=== PATIENT | female | born 1960 | race Caucasian/White ===

== ENCOUNTER 2023-05-03 08:11 | Outpatient (CLI) | payer OTHER, SELFPAY ==
[2023-05-03 19:21] LABS: Hematocrit 42.3 % (37.0-47.0); Hemoglobin 13.7 g/dL (12.0-15.0); Mean Corpuscular HGB Conc 32.4 g/dl (32-36); Mean Corpuscular Hemoglobin 31.4 pg (26-34); Mean Platelet Volume 10.3 fl (7.4-10.4); Platelet Count Result 331 k/mm3 (150-375); Red Blood Count 4.36 M/mm3 (4.2-5.4); Red Cell Distribution Width 13.1 % (11.5-14.5); White Blood Count 5.5 K/mm3 (4.5-10.0)
[2023-05-03 21:44] LABS: Alanine Aminotransferase 14 U/L (6-35); Albumin Level 3.9 g/dL (3.5-5.1); Alkaline Phosphatase 69 U/L (38-126); Anion Gap 7 mmol/L (8-16); Aspartate Amino Transferase 33 U/L (14-36); Bilirubin,Total 0.6 mg/dL (0.2-1.3); Blood Urea Nitrogen 15 mg/dL (7-17); Calcium 8.8 mg/dL (8.4-10.2); Carbon Dioxide 27 mmol/L (22-30); Chloride 103 mmol/L (98-107); Cholesterol 220 mg/dL (0-200); Estimated Glomerular Filt Rate > 60; Glucose 72 mg/dL (65-110); HDL Direct 55 mg/dL; Potassium 4.2 mmol/L (3.4-5.0); Sodium 137 mmol/L (137-145); Triglycerides 140 mg/dL (<150)
[2023-05-03 21:56] LABS: LDL Cholesterol Direct 119 mg/dL
== END 2023-05-03 08:12 | disposition home or self-care (01) ==
LOC: ANHGOSHLAB 08:13
PROVIDERS: PCP Family Medicine; Visit Provider Family Medicine
DX: E78.5 Hyperlipidemia, unspecified (principal); Z79.899 Other long term (current) drug therapy
CPT/HCPCS: 36415; 80053; 80061; 84443; 85027

== ENCOUNTER 2023-06-07 10:51 | Outpatient (CLI) | payer OTHER, SELFPAY ==
--- NOTE | ~2023-06-07 | XR_ITS ---
XR hand LT 2V DATE: 06/07/2023 11:18 INDICATION: Left proximal thumb pain, limited range of motion TECHNIQUE: AP and lateral views COMPARISON: None FINDINGS: There is an approximately 8 x 19 mm lucent lesion of the base and proximal shaft of the fir st metacarpal bone, with narrow zone of transition, minimal scalloping of the endosteal cortex latera lly, no periosteal reaction. This is likely a benign lesion, very possibly enchondroma. There is joint space. Spurring at the first carpometacarpal joint consistent with osteoarthritis. No fracture or dislocation, periosteal reaction or bone destruction is noted otherwise. IMPRESSION: Lytic lesion of the proximal aspect of first metacarpal bone, most likely benign enchondr michell Osteoarthritis at first carpometacarpal joint Reviewed, dictated and finalized at location B. 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
== END 2023-06-07 10:52 | disposition home or self-care (01) ==
PROVIDERS: PCP Family Medicine; Visit Provider Nurse Practitioner
DX: M19.042 Primary osteoarthritis, left hand (principal); M89.9 Disorder of bone, unspecified
CPT/HCPCS: 73120

== ENCOUNTER 2023-07-07 09:04 | Outpatient (CLI) | payer OTHER, SELFPAY ==
--- NOTE | 2023-07-07 12:00 | NEURO_ITS ---
Impression: # Complains of numbness of left hand. # Normal Nerve Conduction Study. # No Carpal Tunnel Syndrome or ulnar neuropathy. # Normal needle/EMG exam. Nerve Conduction Studies Anti Sensory Summary Table Stim Site NR Peak (ms) P-T Amp (?V) Site1 Site2 Delta-P (ms) Dist (cm) William (m/s) Left Median Anti Sensory (2-3nd Digit) Wrist 3.0 61.9 Wrist 2-3nd Digit 3.0 14.0 47 Wrist 3.2 51.6 Wrist 2-3nd Digit 3.0 14.0 47 Left Radial Anti Sensory (Base 1st Digit) Wrist 2.3 18.0 Wrist Base 1st Digit 2.3 0.0 Left Ulnar Anti Sensory (5th Digit) Wrist 2.6 53.3 Wrist 5th Digit 2.6 14.0 54 Motor Summary Table Stim Site NR Onset (ms) O-P Amp (mV) Site1 Site2 Delta-0 (ms) Dist (cm) William (m/s) Left Median Motor (Abd Poll Brev) Wrist 3.2 5.6 Elbow Wrist 5.1 30.0 59 Elbow 8.3 4.9 Left Ulnar Motor (Abd Dig Minimi) Wrist 2.2 4.9 A Elbow Wrist 4.9 28.0 57 A Elbow 7.1 5.1 F Wave Studies NR F-Lat (ms) L-R F-Lat (ms) Left Median (Mrkrs) (Abd Poll Brev) 27.68 Left Ulnar (Mrkrs) (Abd Dig Min) 27.78 EMG Side Muscle Nerve Root Ins Act Fibs Amp Dur Recrt Comment Left 1stDorInt Ulnar C8-T1 Nml Nml Nml Nml Nml Left Ext Indicis Radial (Post Int) C7-8 Nml Nml Nml Nml Nml Left Ext Digitorum Radial (Post Int) C7-8 Nml Nml Nml Nml Nml Left BrachioRad Radial C5-6 Nml Nml Nml Nml Nml Left PronatorTeres Median C6-7 Nml Nml Nml Nml Nml Left Abd Poll Brev Median C8-T1 Nml Nml Nml Nml Nml Left ABD Dig Min Ulnar C8-T1 Nml Nml Nml Nml Nml Left Biceps Musculocut C5-6 Nml Nml Nml Nml Nml MTDD
== END 2023-07-07 09:05 | disposition home or self-care (01) ==
LOC: ANHNEURO 09:05
PROVIDERS: PCP Family Medicine; Visit Provider Plastic Surgery
DX: G56.02 Carpal tunnel syndrome, left upper limb (principal); M79.642 Pain in left hand
CPT/HCPCS: 95886; 95909

== ENCOUNTER 2023-07-07 10:45 | Outpatient (RCR) | payer OTHER, SELFPAY ==
--- NOTE | 2023-06-25 10:59 | OTOPEVAL1 ---
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 She has had left hand pain for 10+ years. She reports pain with pinching, difficulties with crocheting. Reports paresthesias at night. Has a wrist immobilizer for night wear. EMG scheduled for 07/07. Pain Score (L) hand/thumb 1/10 at rest 10/10 at worst Assessment OT Clinical Summary Patient referred to OT with left hand pain and dx of 1st [facility] OA and CTS. She reports difficulties with left hand use, gripping and pinching, which restricts her ability to open jars, pinch and open containers/bags, and complete her leisure activity of crocheting. Skilled OT indicated for fabrication of thumb spica splint, HEP instruction /progression, joint protection education, modalities, and manual therapy to facilitate reduced pain, reduced nerve compression, and improve functional hand use for ADLs. Plan of Care Interventions Therapeutic Exercise,Manual Therapy,Therapeutic Activities,Hot Pack/Cold Pack,Check Out for Orthotic/Pr,Ultrasound,Paraffin OT Services Indicated Yes Treatment Frequency and 2x/week for 8 visits Duration These treatments will address the objective and functional deficits as defined above. The patient will be advanced safely and appropriately in order for the patient to progress towards his/her prior level of function. Additional exercises will be introduced and as well as a comprehensive home exercise program upon discharge, if needed, ?to ensure carryover of functional gains achieved in the clinic. This treatment plan has been reviewed and agreement upon by the patient.
--- NOTE | 2023-07-14 09:34 | OTOPDC ---
Assessment and note entered by Nathan Martinez, OTR/L, T Discharge Notification 07/14/23 OT Clinical Summary Patient called and cancelled the remaining therapy visits due to insurance issues . Chaparrita attended 3 sessions and was complaint with all materials. She has a splint, ROM, and gentle strengthening HEP. Joint protection principles were discussed. She had made great progress with reduced pain. D/C OT per patient request.
== END 2023-07-14 10:51 | disposition home or self-care (01) ==
LOC: ANHOT 10:45
PROVIDERS: PCP Family Medicine; Visit Provider Plastic Surgery
DX: M79.642 Pain in left hand (principal); G56.02 Carpal tunnel syndrome, left upper limb
CPT/HCPCS: 97018; 97110; 97140; 97165; L3913

== ENCOUNTER 2023-11-01 08:08 | Outpatient (CLI) | payer OTHER, SELFPAY ==
[2023-11-01 12:52] LABS: Hematocrit 42.6 % (37.0-47.0); Mean Corpuscular HGB Conc 32.9 g/dl (32-36); Mean Corpuscular Hemoglobin 31.8 pg (26-34); Mean Corpuscular Volume 96.8 fl (80-100); Mean Platelet Volume 10.4 fl (7.4-10.4); Platelet Count Result 289 k/mm3 (150-375); Red Cell Distribution Width 13.5 % (11.5-14.5); White Blood Count 5.6 K/mm3 (4.5-10.0)
[2023-11-01 13:19] LABS: Alanine Aminotransferase 18 U/L (6-35); Alkaline Phosphatase 65 U/L (38-126); Anion Gap 1 mmol/L (4-12); Aspartate Amino Transferase 37 U/L (14-36); Bilirubin,Total 0.9 mg/dL (0.2-1.3); Blood Urea Nitrogen 16 mg/dL (7-17); Carbon Dioxide 30 mmol/L (22-30); Chloride 107 mmol/L (98-107); Cholesterol 229 mg/dL (0-200); Estimated Glomerular Filt Rate 56; Glucose 82 mg/dL (65-110); HDL Direct 57 mg/dL; Potassium 4.1 mmol/L (3.4-5.0); Sodium 138 mmol/L (137-145); Triglycerides 227 mg/dL (<150)
[2023-11-01 13:30] LABS: LDL Cholesterol Direct 119 mg/dL
== END 2023-11-01 08:09 | disposition home or self-care (01) ==
LOC: ANHGOSHLAB 08:09
PROVIDERS: PCP Family Medicine; Visit Provider Family Medicine
DX: E78.5 Hyperlipidemia, unspecified (principal); Z79.899 Other long term (current) drug therapy
CPT/HCPCS: 36415; 80053; 80061; 84443; 85027

== ENCOUNTER 2024-01-13 16:28 | Outpatient (CLI) | payer OTHER, SELFPAY ==
--- NOTE | ~2024-01-13 | MM_ITS ---
EXAMINATION: MM scrn daxa implant BI w carlene HISTORY: Screening mammogram TECHNIQUE: Craniocaudal and mediolateral oblique 3-D tomosynthesis images with implant displacement a nd synthetic 2-D images were generated. Craniocaudal and mediolateral oblique views of the breasts wi thout implant displacement were obtained using full field digital mammography. CAD analysis was submi tted and interpreted. COMPARISON: No prior mammogram is available for comparison at this institution. BREAST PARENCHYMAL COMPOSITION: Not dense: There are scattered areas of fibroglandular density. FINDINGS: There are bilateral breast asymmetries in the upper outer quadrant of both breasts. There are bilater al subpectoral saline implants. IMPRESSION: 1. Bilateral breast asymmetries. 2. Additional mammographic views and possible breast ultrasound are recommended. BI-RADS Category 0: Incomplete: Needs additional imaging evaluation. Reviewed, dictated and finalized at location B. IMPRESSION: 1. Bilateral breast asymmetries. 2. Additional mammographic views and possible breast ultrasound are recommended . BI-RADS Category 0: Incomplete: Needs additional imaging evaluation.
== END 2024-01-13 16:29 | disposition home or self-care (01) ==
LOC: ANHIMG 16:29
PROVIDERS: PCP Family Medicine; Visit Provider Nurse Practitioner Obstetrics & Gynecology
DX: Z12.31 Encounter for screening mammogram for malignant neoplasm of breast (principal); R92.8 Other abnormal and inconclusive findings on diagnostic imaging of breast
CPT/HCPCS: 77063; 77067

== ENCOUNTER 2024-02-21 14:35 | Outpatient (NON) | payer OTHER, SELFPAY | END 2024-02-21 14:36 | disposition home or self-care (01) | LOC: ANHGOSHLAB 14:36 | PROVIDERS: PCP Family Medicine; Visit Provider Nurse Practitioner | DX: R82.90 Unspecified abnormal findings in urine (principal) | CPT/HCPCS: 87077; 87086; 87088; 87186 ==

== ENCOUNTER 2024-04-12 07:19 | Outpatient (CLI) | payer OTHER, SELFPAY ==
[2024-04-12 08:30] LABS: Hematocrit 41.1 % (37.0-47.0); Hemoglobin 13.9 g/dL (12.0-15.0); Mean Corpuscular HGB Conc 33.8 g/dl (32-36); Mean Corpuscular Volume 94.5 fl (80-100); Mean Platelet Volume 9.9 fl (7.4-10.4); Platelet Count Result 274 k/mm3 (150-375); Red Blood Count 4.35 M/mm3 (4.2-5.4); Red Cell Distribution Width 13.3 % (11.5-14.5); White Blood Count 5.9 K/mm3 (4.5-10.0)
[2024-04-12 08:39] LABS: Alanine Aminotransferase 15 U/L (6-35); Alkaline Phosphatase 55 U/L (38-126); Anion Gap 5 mmol/L (4-12); Aspartate Amino Transferase 24 U/L (14-36); Bilirubin,Total 0.8 mg/dL (0.2-1.3); Blood Urea Nitrogen 15 mg/dL (7-17); Calcium 8.7 mg/dL (8.4-10.2); Carbon Dioxide 31 mmol/L (22-30); Chloride 102 mmol/L (98-107); Cholesterol 183 mg/dL (0-200); Estimated Glomerular Filt Rate > 60; Glucose 87 mg/dL (65-110); HDL Direct 58 mg/dL; Potassium 3.6 mmol/L (3.4-5.0); Sodium 138 mmol/L (137-145); Triglycerides 197 mg/dL (<150)
[2024-04-12 08:50] LABS: LDL Cholesterol Direct 83 mg/dL
[2024-04-12 11:48] LABS: Vitamin D 25 Hydroxy 26.2 ng/mL
== END 2024-04-12 07:20 | disposition home or self-care (01) ==
LOC: ANHLAB 07:22
PROVIDERS: PCP Family Medicine; Visit Provider Nurse Practitioner
DX: Z00.00 Encounter for general adult medical examination without abnormal findings (principal); E55.9 Vitamin D deficiency, unspecified
CPT/HCPCS: 36415; 80053; 80061; 82306; 84443; 85027

== ENCOUNTER 2024-10-12 07:00 | Outpatient (CLI) | payer OTHER, SELFPAY ==
[2024-10-12 08:05] LABS: Hematocrit 40.5 % (37.0-47.0); Hemoglobin 13.7 g/dL (12.0-15.0); Mean Corpuscular HGB Conc 33.8 g/dl (32-36); Mean Corpuscular Hemoglobin 31.5 pg (26-34); Mean Corpuscular Volume 93.1 fl (80-100); Platelet Count Result 270 k/mm3 (150-375); Red Blood Count 4.35 M/mm3 (4.2-5.4); Red Cell Distribution Width 12.8 % (11.5-14.5); White Blood Count 5.7 K/mm3 (4.5-10.0)
[2024-10-12 08:17] LABS: Alanine Aminotransferase 24 U/L (6-35); Alkaline Phosphatase 57 U/L (38-126); Anion Gap 5 mmol/L (4-12); Aspartate Amino Transferase 33 U/L (14-36); Bilirubin,Total 0.8 mg/dL (0.2-1.3); Blood Urea Nitrogen 17 mg/dL (7-17); Calcium 9.1 mg/dL (8.4-10.2); Carbon Dioxide 28 mmol/L (22-30); Chloride 105 mmol/L (98-107); Cholesterol 213 mg/dL (0-200); Estimated Glomerular Filt Rate > 60; Glucose 101 mg/dL (65-110); HDL Direct 54 mg/dL; Potassium 3.9 mmol/L (3.4-5.0); Sodium 138 mmol/L (137-145); Triglycerides 292 mg/dL (<150)
[2024-10-12 08:28] LABS: LDL Cholesterol Direct 78 mg/dL
[2024-10-17 14:12] LABS: Vitamin D 1,25 (OH)2 Total 35 pg/mL (18-72); Vitamin D2 1,25 (OH)2 <8 pg/mL; Vitamin D3 1,25 (OH)2 35 pg/mL
== END 2024-10-12 07:01 | disposition home or self-care (01) ==
PROVIDERS: PCP Family Medicine; Visit Provider Family Medicine
DX: E78.5 Hyperlipidemia, unspecified (principal); E55.9 Vitamin D deficiency, unspecified; Z79.899 Other long term (current) drug therapy
CPT/HCPCS: 36415; 80053; 80061; 82652; 84443; 85027

== ENCOUNTER 2024-11-01 12:17 | Outpatient (CLI) | payer OTHER, SELFPAY ==
--- NOTE | ~2024-11-01 | US_ITS ---
US pelvic complete w TV Ordering provider: Farrah Hanson APRN History: . N94.9 - Unspecified condition associated with female tea... . Comparison: None. Technique: Transabdominal ultrasound of the pelvis (Doppler ultrasound interrogation techniques used as needed for this exam.) FINDINGS: CERVIX: Normal. UTERUS: Measures 7.4x 3.5x 3.5 cm in length which is within normal limits and is anteverted. No myom etrial masses. Multiple hypodensities most likely cysts seen in the uterine wall measuring 0.3 x 0.4 x 0.5 cm. Another one is seen measuring 0.5 x 0.4 x 0.4 cm ENDOMETRIUM: Normal in thickness measuring 3.5 mm. No endometrial masses, cysts or fluid. CUL DE SAC: No free fluid. RIGHT OVARY: Not demonstrated.. LEFT OVARY: Not demonstrated. ADNEXA: Normal. No mass. IMPRESSION: Small hypoechoic areas in the uterus most likely small cysts. Ovaries are not visualized. Otherwise, normal pelvic ultrasound. Reviewed, dictated and finalized at location A. IMPRESSION: Small hypoechoic areas in the uterus most likely small cysts. Ovaries are not v isualized. Otherwise, normal pelvic ultrasound.
--- NOTE | ~2024-11-01 | DEXA_ITS ---
Bone Density Report Name: PAOLA HANKS Age: 63 Sex: Female Ethnicity: White Date of : 1960 Indication: postmenopausal; screening for osteoporosis; Referring Provider: LOLITA JONES Study: Bone densitometry was performed. Exam Date: November 01, 2024 Accession number: [id number] Bone Density: Region BMD T-score Z-score Classification AP Spine(L1-L4) 1.221 1.6 3.3 Normal Femoral Neck (Left) 0.855 0.1 1.5 Normal Total Hip (Left) 1.074 1.1 2.2 Normal Femoral Neck (Right) 0.842 -0.1 1.4 Normal Total Hip (Right) 1.047 0.9 2.0 Normal Femoral Neck Mean 0.849 0.0 1.5 Normal Total Hip Mean 1.060 1.0 2.1 Normal World Health Organization criteria for BMD impression classify patients as: Normal (T-score at or above -1.0), Osteopenia (T-score between -1.0 and -2.5), or Osteoporosis (T-score at or below -2.5). 10-year Fracture Risk: FRAX not reported because: All T-scores for Spine Total, Hip Total, Femoral Neck at or above -1.0 Clinical Information Provided by Patient: Smokes Has used the following medications: Vitamin D, multi Patient maximum height was 66 Menopause Age: 55 Drinks caffeinated beverages Onset of menses at age 14 Number of children 1 Impression: The patient has normal bone mass. The patient has risk factors, including: smoking. Discussion: BONE DENSITY IS ABOVE THE MINIMUM DESIRABLE LEVEL AT ALL SKELETAL SITES TESTED. This patient?s bone mineral density is above the minimum desirable level (T-score -1.0 or better) at all sites measured. The patient should follow a healthful lifestyle (good nutrition with adequate calcium and vitamin D, and appropriate weight-bearing exercise). Follow-Up: Consider repeating this study in 5 years or sooner if there is some new clinical indication. Reported by: JOHNNY on 11/01/2024 1:09:00 PM. Reviewed, dictated and finalized at location A.
== END 2024-11-01 12:18 | disposition home or self-care (01) ==
LOC: CHSIMG 12:19
PROVIDERS: PCP Family Medicine; Visit Provider Nurse Practitioner Obstetrics & Gynecology
DX: Z78.0 Asymptomatic menopausal state (principal); N94.9 Unspecified condition associated with female genital organs and menstrual cycle
CPT/HCPCS: 76830; 76856; 77080

== ENCOUNTER 2025-03-07 09:23 | Outpatient (CLI) | payer OTHER, SELFPAY ==
--- NOTE | ~2025-03-07 | MM_ITS ---
EXAMINATION: MM scrn daxa implant BI w carlene INDICATION: Asymptomatic, referred for screening mammogram COMPARISON: 01/13/2024 through 11/18/2021 TECHNIQUE: Digital Breast Tomosynthesis CC, MLO, and implant displaced CC and MLO views of Both breasts were obtained with computer-aided detection to assist in interpretation of the study. FINDINGS: The breasts are heterogeneously dense, which may obscure small masses. Bilateral breast Retropectoral Saline implants in place appears intact. No focal dominant mass, architectural distortion, or suspicious microcalcifications are identified. There are no features to suggest malignancy. IMPRESSION: 1. No evidence of malignancy in the breasts. 2. Both breasts Retropectoral Saline implants appears intact. Recommend continued screening mammography BI-RADS 1, NEGATIVE Reviewed, dictated and finalized at location B.
== END 2025-03-07 09:24 | disposition home or self-care (01) ==
LOC: CHSIMG 09:25
PROVIDERS: PCP Family Medicine; Visit Provider Nurse Practitioner Obstetrics & Gynecology
DX: Z12.31 Encounter for screening mammogram for malignant neoplasm of breast (principal); Z98.82 Breast implant status
CPT/HCPCS: 77063; 77067

== ENCOUNTER 2025-05-15 07:04 | Outpatient (CLI) | payer OTHER, SELFPAY ==
[2025-05-15 07:23] LABS: Hematocrit 40.7 % (37.0-47.0); Hemoglobin 13.8 g/dL (12.0-15.0); Mean Corpuscular HGB Conc 33.9 g/dl (32-36); Mean Corpuscular Hemoglobin 32.1 pg (26-34); Mean Corpuscular Volume 94.7 fl (80-100); Platelet Count Result 263 k/mm3 (150-375); Red Blood Count 4.30 M/mm3 (4.2-5.4); White Blood Count 5.4 K/mm3 (4.5-10.0)
[2025-05-15 07:47] LABS: Alanine Aminotransferase 17 U/L (6-35); Albumin Level 4.1 g/dL (3.5-5.1); Alkaline Phosphatase 62 U/L (38-126); Anion Gap 6 mmol/L (4-12); Aspartate Amino Transferase 30 U/L (14-36); Bilirubin,Total 0.9 mg/dL (0.2-1.3); Blood Urea Nitrogen 17 mg/dL (7-17); Calcium 9.2 mg/dL (8.4-10.2); Carbon Dioxide 25 mmol/L (22-30); Chloride 104 mmol/L (98-107); Cholesterol 200 mg/dL (0-200); Estimated Glomerular Filt Rate 53; Glucose 96 mg/dL (65-110); HDL Direct 67 mg/dL; Potassium 3.8 mmol/L (3.4-5.0); Sodium 135 mmol/L (137-145); Total Protein 7.2 g/dL (6.3-8.2); Triglycerides 185 mg/dL (<150)
[2025-05-15 08:22] LABS: Thyroid Stimulating Hormone 2.480 uIU/mL (0.465-4.680)
[2025-05-15 09:42] LABS: Hemoglobin A1C 5.1 % (<5.7)
== END 2025-05-15 07:05 | disposition home or self-care (01) ==
LOC: ANHLAB 07:07
PROVIDERS: PCP Family Medicine; Visit Provider Family Medicine
DX: R73.09 Other abnormal glucose (principal); E55.9 Vitamin D deficiency, unspecified; E78.5 Hyperlipidemia, unspecified; Z79.899 Other long term (current) drug therapy
CPT/HCPCS: 36415; 80053; 80061; 82652; 83036; 84443; 85027